=== PATIENT | female | born 1990 | race Caucasian/White ===

== ENCOUNTER 2019-05-21 20:54 | Inpatient (IN) | payer MEDICAID, OTHER ==
[~2019-05-21] VITALS: Ht 175.3 cm; Wt 111.1 kg
[2019-05-22] MEDS ORDERED: ONDANSETRON HCL 4MG/2ML INJ IV STA (00:05)
[2019-05-22] MEDS ORDERED: MORPHINE SULFATE 4 MG/ML CPJ (NOT FOR IM USE) IV STA (00:05)
[2019-05-22] MEDS ORDERED: KETOROLAC 30MG/ML VIAL IV STA (00:05)
[2019-05-22] MEDS ORDERED: SODIUM CHLORIDE 0.9% 1000ML BAG (SEPSIS BOLUS) IV ONE (00:15)
[2019-05-22] MEDS ORDERED: CEFTRIAXONE 1 G PREMIX 50 ML IV ONE (00:15)
[2019-05-22] MEDS ORDERED: MORPHINE SULFATE 2 MG/ML CPJ (NOT FOR IM USE) IV ONE (00:45)
[2019-05-22] MEDS ORDERED: ACETAMINOPHEN 500MG TABLET PO ONE (00:45)
[2019-05-22] MEDS ORDERED: CEFTRIAXONE 1,000 MG in DEXTROSE 5% WATER 50 ML IV ONE (02:00)
[2019-05-22 02:08] LABS: BASOPHILS % 1.1 % (0.0-2.0); EOSINOPHILS % 2.2 % (0.0-5.0); HEMATOCRIT. 34.5 % (36.0-48.0); HEMOGLOBIN. 11.3 g/dL (12.0-16.0); LYMPHOCYTES % 25.6 % (20.0-50.0); MEAN CORPUSCULAR VOLUME 82.5 fL (81.0-99.0); MEAN PLATELET VOLUME 8.4 fl (7.4-10.4); MONOCYTES % 7.3 % (2.0-8.0); NEUTROPHILS % 63.8 % (40.0-76.0); PLATELET 267 x1000/uL (130-400); RED BLOOD CELL COUNT 4.18 mill/uL (4.2-5.4); RED CELL DISTRIBUTION WIDTH 14.6 % (11.6-14.6)
[2019-05-22 02:14] LABS: INR 0.9; PROTHROMBIN TIME 9.7 sec (9.6-11.0)
[2019-05-22 02:18] LABS: CHLORIDE 106 mEq/L (98-107)
[2019-05-22 02:20] LABS: CLARITY URINE CLEAR (CLEAR); COLOR URINE YELLOW (YELLOW); KETONES URINE NEGATIVE (NEGATIVE); LEUKOCYTE ESTERASE URINE 2+ (NEGATIVE); NITRITE URINE NEGATIVE (NEGATIVE); OCCULT BLOOD URINE 1+ (NEGATIVE); PH URINE 6.5 (4.5-8.0); PROTEIN URINE NEGATIVE (NEGATIVE); SPECIFIC GRAVITY URINE 1.004 (1.005-1.030); UROBILINOGEN URINE 0.2 E.U./dL (0.2-1.0)
[2019-05-22] MEDS ORDERED: MORPHINE SULFATE 4 MG/ML CPJ (NOT FOR IM USE) IV SCH (02:30)
[2019-05-22 02:41] LABS: B-HCG QUANTITATIVE 9325 mIU/mL (<3)
[2019-05-22] MEDS: HYDROCODONE/ACETAMINOPHEN 10/325MG TABLET PO PRN (05:23)
[2019-05-22] MEDS ORDERED: ACETAMINOPHEN 325MG TABLET PO PRN (05:30)
[2019-05-22] MEDS ORDERED: ONDANSETRON HCL 4MG/2ML INJ IV PRN (05:30)
[2019-05-22 08:00] VITALS: BP 111/76
[2019-05-22] MEDS ORDERED: CEFAZOLIN 2000MG PREMIX 50 ML IV SCH ×2 (08:00→14:00)
[2019-05-22] MEDS ORDERED: DEXT 5%/LACTATED RINGERS 1,000 ML IV SCH (09:41)
[2019-05-22] MEDS ORDERED: LIDOCAINE HCL/PF 1% 10 MG/ML 5ML VIAL ONE (10:50)
[2019-05-22 11:19] LABS: *AMPHETAMINES SCREEN URINE NEGATIVE (NEGATIVE); *BARBITURATES SCREEN URINE NEGATIVE (NEGATIVE); *BENZODIAZEPINES SCREEN URINE NEGATIVE (NEGATIVE); *COCAINE SCREEN URINE NEGATIVE (NEGATIVE); METHADONE URINE SCREEN NEGATIVE (NEGATIVE)
[2019-05-22 11:20] LABS: CANNABINOID URINE SCREEN NEGATIVE (NEGATIVE); OPIATES URINE SCREEN NEGATIVE (NEGATIVE); PHENCYCLIDINE URINE SCREEN NEGATIVE (NEGATIVE)
[2019-05-22] MEDS ORDERED: ACETAMINOPHEN WITH CODEINE 300/30MG TABLET PO PRN (12:00)
[2019-05-22] MEDS: LACTATED RINGERS 1,000 ML IV SCH ×2 (12:31→19:55)
[2019-05-22 13:00] LABS: EOSINOPHILS % 2.9 % (0.0-5.0); HEMATOCRIT. 30.8 % (36.0-48.0); HEMOGLOBIN. 10.3 g/dL (12.0-16.0); LYMPHOCYTES % 26.1 % (20.0-50.0); MEAN CORPUSCULAR HEMOGLOBIN 27.6 pg (28.0-32.0); MEAN CORPUSCULAR VOLUME 82.6 fL (81.0-99.0); MEAN PLATELET VOLUME 8.4 fl (7.4-10.4); MONOCYTES % 6.5 % (2.0-8.0); NEUTROPHILS % 63.5 % (40.0-76.0); PLATELET 236 x1000/uL (130-400); RED BLOOD CELL COUNT 3.72 mill/uL (4.2-5.4); RED CELL DISTRIBUTION WIDTH 14.8 % (11.6-14.6)
[2019-05-22 13:51] LABS: HEPATITIS B SURFACE ANTIGEN NEGATIVE
[2019-05-22] MEDS ORDERED: CEFAZOLIN 2000MG in DEXTROSE 5% WATER 100ML IV SCH (14:00)
[2019-05-22] MEDS: BUTORPHANOL TARTRATE 2 MG/ML VIAL IV PRN ×2 (14:12→20:13)
[2019-05-22] MEDS ORDERED: POTASSIUM CHLORIDE 20MEQ TABLET SR PO NR (16:00)
[2019-05-22] MEDS: DAPTOMYCIN 500 MG in SODIUM CHLORIDE 0.9% 50 ML IV SCH (21:40)
[2019-05-23] MEDS: HYDROCODONE/ACETAMINOPHEN 10/325MG TABLET PO PRN ×4 (00:05→18:07)
[2019-05-23] MEDS: LACTATED RINGERS 1,000 ML IV SCH ×2 (04:06→19:37)
[2019-05-23] MEDS: DAPTOMYCIN 500 MG in SODIUM CHLORIDE 0.9% 50 ML IV SCH (21:05)
[2019-05-23] MEDS: BUTORPHANOL TARTRATE 2 MG/ML VIAL IV PRN (22:11)
[2019-05-24] MEDS: HYDROCODONE/ACETAMINOPHEN 10/325MG TABLET PO PRN ×2 (03:52→11:13)
[2019-05-24] MEDS: LACTATED RINGERS 1,000 ML IV SCH ×2 (08:15→22:20)
[2019-05-24] MEDS: BUTORPHANOL TARTRATE 2 MG/ML VIAL IV PRN ×2 (15:39→21:11)
[2019-05-24] MEDS: DAPTOMYCIN 500 MG in SODIUM CHLORIDE 0.9% 50 ML IV SCH (22:36)
[2019-05-25] MEDS: BUTORPHANOL TARTRATE 2 MG/ML VIAL IV PRN ×5 (04:46→23:34)
[2019-05-25 09:00] LABS: BASOPHILS % 0.9 % (0.0-2.0); EOSINOPHILS % 3.9 % (0.0-5.0); HEMATOCRIT. 29.7 % (36.0-48.0); HEMOGLOBIN. 9.8 g/dL (12.0-16.0); LYMPHOCYTES % 21.3 % (20.0-50.0); MEAN CORPUSCULAR HEMOGLOBIN 27.5 pg (28.0-32.0); MEAN CORPUSCULAR VOLUME 83.1 fL (81.0-99.0); MEAN PLATELET VOLUME 8.4 fl (7.4-10.4); MONOCYTES % 6.3 % (2.0-8.0); NEUTROPHILS % 67.6 % (40.0-76.0); PLATELET 214 x1000/uL (130-400); RED BLOOD CELL COUNT 3.57 mill/uL (4.2-5.4); RED CELL DISTRIBUTION WIDTH 15.2 % (11.6-14.6)
[2019-05-25 09:06] LABS: CHLORIDE 108 mEq/L (98-107)
[2019-05-25] MEDS: PRENATAL VIT/FE FUMARATE/FA TABLET PO SCH (09:30)
[2019-05-25 20:00] VITALS: BP 117/74
[2019-05-25] MEDS: HYDROCODONE/ACETAMINOPHEN 10/325MG TABLET PO PRN (22:28)
[2019-05-26] VITALS: BP 120/79
[2019-05-26] MEDS: DAPTOMYCIN 500 MG in SODIUM CHLORIDE 0.9% 50 ML IV SCH ×2 (01:02→21:01)
[2019-05-26] MEDS: BUTORPHANOL TARTRATE 2 MG/ML VIAL IV PRN ×5 (03:39→21:24)
[2019-05-26] MEDS: LACTATED RINGERS 1,000 ML IV SCH ×2 (07:50→16:27)
[2019-05-26 08:00] VITALS: BP 109/76
[2019-05-26] MEDS: PRENATAL VIT/FE FUMARATE/FA TABLET PO SCH (09:51)
[2019-05-26 10:22] LABS: EOSINOPHILS % 4.9 % (0.0-5.0); HEMATOCRIT. 29.9 % (36.0-48.0); HEMOGLOBIN. 9.9 g/dL (12.0-16.0); LYMPHOCYTES % 23.4 % (20.0-50.0); MEAN CORPUSCULAR HEMOGLOBIN 27.4 pg (28.0-32.0); MEAN CORPUSCULAR VOLUME 82.9 fL (81.0-99.0); MEAN PLATELET VOLUME 8.4 fl (7.4-10.4); MONOCYTES % 7.3 % (2.0-8.0); NEUTROPHILS % 63.4 % (40.0-76.0); PLATELET 224 x1000/uL (130-400); RED BLOOD CELL COUNT 3.61 mill/uL (4.2-5.4); RED CELL DISTRIBUTION WIDTH 14.9 % (11.6-14.6)
[2019-05-26 10:34] LABS: CHLORIDE 108 mEq/L (98-107)
[2019-05-26 12:00] VITALS: BP 121/83
[2019-05-26 16:00] VITALS: BP 114/58
[2019-05-26 20:00] VITALS: BP 127/87
[2019-05-27] VITALS: BP 125/80
[2019-05-27] MEDS ORDERED: SODIUM CHLORIDE 0.9% 1,000 ML IV SCH (01:00)
[2019-05-27] MEDS: BUTORPHANOL TARTRATE 2 MG/ML VIAL IV PRN ×4 (01:41→14:39)
[2019-05-27 04:00] VITALS: BP 94/68
[2019-05-27] MEDS: LACTATED RINGERS 1,000 ML IV SCH (04:41)
[2019-05-27 08:00] VITALS: BP 111/73
[2019-05-27 08:38] LABS: BASOPHILS % 1.2 % (0.0-2.0); EOSINOPHILS % 4.8 % (0.0-5.0); HEMATOCRIT. 29.5 % (36.0-48.0); HEMOGLOBIN. 9.9 g/dL (12.0-16.0); MEAN CORPUSCULAR HEMOGLOBIN 27.5 pg (28.0-32.0); MEAN CORPUSCULAR VOLUME 82.2 fL (81.0-99.0); MEAN PLATELET VOLUME 8.1 fl (7.4-10.4); MONOCYTES % 7.6 % (2.0-8.0); NEUTROPHILS % 66.4 % (40.0-76.0); PLATELET 220 x1000/uL (130-400); RED BLOOD CELL COUNT 3.59 mill/uL (4.2-5.4)
[2019-05-27 08:51] LABS: CHLORIDE 109 mEq/L (98-107)
[2019-05-27] MEDS: PRENATAL VIT/FE FUMARATE/FA TABLET PO SCH (09:38)
[2019-05-27 12:00] VITALS: BP 111/79
[2019-05-27 15:10] VITALS: BP 111/79
[2019-05-27 16:00] VITALS: BP 121/81
== END 2019-05-27 16:12 | disposition home or self-care (01) | DRG 566 ==
LOC: ER 20:54 → EDBEDREQTM 05-22 02:42 → EDBEDREQ 05-22 02:42 → EDBEDREQSVC 05-22 02:42 → ENRESERV 05-22 05:13 → 6EST 05-22 06:05 → 8 EST LDRP 05-22 10:00 → 8 EST A/PP 05-24 11:00 → 6EST 05-25 21:37
PROVIDERS: ADMIT Specialist; ATTEND Specialist
PROC: 05HY33Z Insertion of Infusion Device into Upper Vein, Percutaneous Approach (ICD-10-PCS; principal; 2019-05-24)
PROC: B54MZZZ Ultrasonography of Right Upper Extremity Veins (ICD-10-PCS; 2019-05-24)
DX: O23.03 Infections of kidney in pregnancy, third trimester (principal); O34.211 Maternal care for low transverse scar from previous cesarean delivery; D64.9 Anemia, unspecified; O99.013 Anemia complicating pregnancy, third trimester; K21.9 Gastro-esophageal reflux disease without esophagitis; O99.62 Diseases of the digestive system complicating childbirth; Z3A.37 37 weeks gestation of pregnancy; Z68.36 Body mass index [BMI] 36.0-36.9, adult
CPT/HCPCS: 36415; 36573; 76770; 76805; 80305; 81003; 83605; 84132; 84145; 84702; 86592; 86703; 86762; 86850; 86900; 87340; 99281; 99285; C1725; C1893; G0378; J0595; J0690; J0696; J0878; J2270; J3490; J7030; J7060; J7120; A4315

== ENCOUNTER 2019-06-01 17:19 | Emergency (ER) | payer MEDICAID ==
[~2019-06-01] VITALS: Ht 175.3 cm; Wt 108.0 kg
[2019-06-01 20:03] VITALS: BP 133/90
== END 2019-06-01 21:16 | disposition left against medical advice (07) ==
LOC: ER 17:19
DX: R10.9 Unspecified abdominal pain (principal); Z53.21 Procedure and treatment not carried out due to patient leaving prior to being seen by health care provider

== ENCOUNTER 2019-06-02 11:26 | Observation (INO) | payer MEDICAID ==
[~2019-06-02] VITALS: Ht 170.2 cm; Wt 113.4 kg
[2019-06-02 13:56] LABS: CLARITY URINE CLEAR (CLEAR); COLOR URINE YELLOW (YELLOW); KETONES URINE NEGATIVE (NEGATIVE); LEUKOCYTE ESTERASE URINE 1+ (NEGATIVE); NITRITE URINE NEGATIVE (NEGATIVE); OCCULT BLOOD URINE NEGATIVE (NEGATIVE); PROTEIN URINE NEGATIVE (NEGATIVE); SPECIFIC GRAVITY URINE 1.009 (1.005-1.030); UROBILINOGEN URINE 0.2 E.U./dL (0.2-1.0)
[2019-06-02] MEDS ORDERED: CEFTRIAXONE SODIUM 1 G/VIAL IM SCH (14:45)
== END 2019-06-02 15:25 | disposition home or self-care (01) ==
LOC: 8 EST LDRP 11:26
PROVIDERS: ADMIT Obstetrics & Gynecology; ATTEND Obstetrics & Gynecology
DX: O26.893 Other specified pregnancy related conditions, third trimester (principal); R10.9 Unspecified abdominal pain; Z3A.34 34 weeks gestation of pregnancy
CPT/HCPCS: 81003; 96372; 99281; G0378; J0696

== ENCOUNTER 2019-06-02 15:36 | Emergency (ER) | payer MEDICAID ==
[~2019-06-02] VITALS: Ht 175.3 cm; Wt 109.0 kg
[2019-06-02 21:03] VITALS: BP 124/90
[2019-06-02] MEDS ORDERED: ACETAMINOPHEN 325MG TABLET PO STA (21:03)
[2019-06-02 21:28] LABS: CLARITY URINE CLEAR (CLEAR); COLOR URINE YELLOW (YELLOW); KETONES URINE NEGATIVE (NEGATIVE); LEUKOCYTE ESTERASE URINE 2+ (NEGATIVE); NITRITE URINE POSITIVE (NEGATIVE); OCCULT BLOOD URINE TRACE (NEGATIVE); PROTEIN URINE TRACE (NEGATIVE); SPECIFIC GRAVITY URINE 1.013 (1.005-1.030); UROBILINOGEN URINE 0.2 E.U./dL (0.2-1.0)
[2019-06-02] MEDS ORDERED: KETOROLAC 15MG/ML VIAL IV ONE (22:45)
== END 2019-06-02 23:09 | disposition left against medical advice (07) ==
LOC: ER 15:36
DX: O26.893 Other specified pregnancy related conditions, third trimester (principal); R10.11 Right upper quadrant pain; Z3A.00 Weeks of gestation of pregnancy not specified; Z98.890 Other specified postprocedural states; Z87.442 Personal history of urinary calculi
CPT/HCPCS: 81003; 99283; Z7610

== ENCOUNTER 2019-06-09 12:40 | Emergency (ER) | payer MEDICAID ==
[~2019-06-09] VITALS: Ht 175.3 cm; Wt 111.0 kg
[2019-06-09] MEDS ORDERED: SODIUM CHLORIDE 0.9% 1,000 ML IV ONE (13:48)
[2019-06-09] MEDS ORDERED: ONDANSETRON HCL 4MG/2ML INJ IV ONE (14:00)
[2019-06-09] MEDS ORDERED: MORPHINE SULFATE 4 MG/ML CPJ (NOT FOR IM USE) IV ONE (14:00)
[2019-06-09 14:14] LABS: HEMATOCRIT. 36.1 % (36.0-48.0); MEAN CORPUSCULAR HEMOGLOBIN 27.2 pg (28.0-32.0); MEAN CORPUSCULAR VOLUME 81.7 fL (81.0-99.0); RED BLOOD CELL COUNT 4.43 mill/uL (4.2-5.4); RED CELL DISTRIBUTION WIDTH 15.8 % (11.6-14.6)
[2019-06-09 14:20] LABS: CHLORIDE 106 mEq/L (98-107)
[2019-06-09 14:38] LABS: PLATELET ESTIMATE NORMAL
[2019-06-09 16:39] LABS: CLARITY URINE CLEAR (CLEAR); COLOR URINE YELLOW (YELLOW); KETONES URINE NEGATIVE (NEGATIVE); LEUKOCYTE ESTERASE URINE 2+ (NEGATIVE); NITRITE URINE POSITIVE (NEGATIVE); OCCULT BLOOD URINE NEGATIVE (NEGATIVE); PROTEIN URINE NEGATIVE (NEGATIVE); SPECIFIC GRAVITY URINE 1.006 (1.005-1.030); UROBILINOGEN URINE 0.2 E.U./dL (0.2-1.0)
[2019-06-09 17:04] LABS: *AMPHETAMINES SCREEN URINE NEGATIVE (NEGATIVE); *BARBITURATES SCREEN URINE NEGATIVE (NEGATIVE); *COCAINE SCREEN URINE NEGATIVE (NEGATIVE); CANNABINOID URINE SCREEN NEGATIVE (NEGATIVE); PHENCYCLIDINE URINE SCREEN NEGATIVE (NEGATIVE)
[2019-06-09 17:05] LABS: *BENZODIAZEPINES SCREEN URINE NEGATIVE (NEGATIVE); METHADONE URINE SCREEN NEGATIVE (NEGATIVE); OPIATES URINE SCREEN NEGATIVE (NEGATIVE)
[2019-06-09 17:50] VITALS: BP 128/78
== END 2019-06-09 19:26 | disposition home or self-care (01) ==
LOC: ER 12:40
DX: O99.89 Other specified diseases and conditions complicating pregnancy, childbirth and the puerperium (principal); N13.2 Hydronephrosis with renal and ureteral calculous obstruction; G89.29 Other chronic pain; Z3A.36 36 weeks gestation of pregnancy
CPT/HCPCS: 36415; 76770; 80053; 80305; 81003; 85025; 99284; J7030; J2270; J2405

== ENCOUNTER 2019-12-02 17:45 | Emergency (ER) | payer MEDICAID ==
[~2019-12-02] VITALS: Ht 175.3 cm; Wt 100.0 kg
[2019-12-02] MEDS ORDERED: SODIUM CHLORIDE 0.9% 1,000 ML IV ONE (18:06)
[2019-12-02] MEDS ORDERED: KETOROLAC 30MG/ML VIAL IV STA (18:06)
[2019-12-02 18:30] LABS: CLARITY URINE CLEAR (CLEAR); COLOR URINE YELLOW (YELLOW); KETONES URINE NEGATIVE (NEGATIVE); LEUKOCYTE ESTERASE URINE NEGATIVE (NEGATIVE); NITRITE URINE NEGATIVE (NEGATIVE); OCCULT BLOOD URINE 1+ (NEGATIVE); PROTEIN URINE TRACE (NEGATIVE); UROBILINOGEN URINE 0.2 E.U./dL (0.2-1.0)
[2019-12-02 19:04] VITALS: BP 140/93
[2019-12-02 19:20] LABS: BASOPHILS % 1.5 % (0.0-2.0); EOSINOPHILS % 5.1 % (0.0-5.0); HEMATOCRIT. 33.8 % (36.0-48.0); HEMOGLOBIN. 11.4 g/dL (12.0-16.0); LYMPHOCYTES % 35.5 % (20.0-50.0); MEAN CORPUSCULAR HEMOGLOBIN 27.8 pg (28.0-32.0); MEAN CORPUSCULAR VOLUME 82.5 fL (81.0-99.0); MEAN PLATELET VOLUME 7.5 fl (7.4-10.4); MONOCYTES % 8.9 % (2.0-8.0); PLATELET 298 x1000/uL (130-400); RED CELL DISTRIBUTION WIDTH 14.8 % (11.6-14.6)
[2019-12-02 19:21] LABS: HCG SCREEN NEGATIVE
[2019-12-02 19:24] LABS: CHLORIDE 107 mEq/L (98-107)
== END 2019-12-02 21:05 | disposition home or self-care (01) ==
LOC: ER 17:45
DX: R10.9 Unspecified abdominal pain (principal); M54.5 Low back pain; Z87.442 Personal history of urinary calculi; Z93.6 Other artificial openings of urinary tract status
CPT/HCPCS: 36415; 74176; 80053; 81003; 81025; 84703; 85025; 87040; 96374; 99284; J1885; J7030

== ENCOUNTER 2020-12-17 16:46 | Emergency (ER) | payer MEDICAID ==
[~2020-12-17] VITALS: Ht 175.3 cm; Wt 108.0 kg
[2020-12-17] MEDS ORDERED: MORPHINE SULFATE 2 MG/ML CPJ (NOT FOR IM USE) IV ONE (18:15)
[2020-12-17] MEDS ORDERED: ONDANSETRON HCL 4MG/2ML INJ IV ONE (18:15)
[2020-12-17 19:36] LABS: CLARITY URINE TURBID (CLEAR); COLOR URINE YELLOW (YELLOW); KETONES URINE NEGATIVE (NEGATIVE); LEUKOCYTE ESTERASE URINE 3+ (NEGATIVE); NITRITE URINE NEGATIVE (NEGATIVE); OCCULT BLOOD URINE 1+ (NEGATIVE); PROTEIN URINE 2+ (NEGATIVE); SPECIFIC GRAVITY URINE 1.012 (1.005-1.030); UROBILINOGEN URINE 0.2 E.U./dL (0.2-1.0)
[2020-12-17 20:12] LABS: BASOPHILS % 1.1 % (0.0-2.0); EOSINOPHILS % 4.1 % (0.0-5.0); HEMOGLOBIN. 9.1 g/dL (12.0-16.0); LYMPHOCYTES % 22.3 % (20.0-50.0); MEAN CORPUSCULAR HEMOGLOBIN 21.4 pg (28.0-32.0); MEAN CORPUSCULAR VOLUME 68.2 fL (81.0-99.0); MEAN PLATELET VOLUME 8.4 fl (7.4-10.4); MONOCYTES % 9.7 % (2.0-8.0); NEUTROPHILS % 62.8 % (40.0-76.0); PLATELET 428 x1000/uL (130-400); RED BLOOD CELL COUNT 4.26 mill/uL (4.2-5.4)
[2020-12-17 20:22] LABS: CHLORIDE 106 mEq/L (98-107)
[2020-12-17 20:41] LABS: PLATELET ESTIMATE NORMAL
[2020-12-17 20:54] LABS: HCG SCREEN NEGATIVE
[2020-12-17] MEDS ORDERED: LEVOFLOXACIN 750MG PREMIX 150 ML IV ONE (23:00)
[2020-12-17] MEDS ORDERED: MORPHINE SULFATE 4 MG/ML CPJ (NOT FOR IM USE) IV ONE (23:00)
[2020-12-17] MEDS ORDERED: IOHEXOL-300 100 ML BOTTLE ONE (23:26)
[2020-12-17] MEDS ORDERED: LEVO750T46 MT (23:29)
[2020-12-18 00:42] VITALS: BP 118/72
== END 2020-12-18 00:47 | disposition home or self-care (01) ==
LOC: ER 16:59
DX: R10.32 Left lower quadrant pain (principal); N39.0 Urinary tract infection, site not specified
CPT/HCPCS: 36415; 74177; 80053; 81003; 81025; 83690; 84703; 85025; 87077; 87086; 87186; 93005; 96365; 96375; 96376; 99285; J1956; J2270; J2405; Q9967; Z7610